=== PATIENT | female | born 1945 | race Caucasian/White ===

== ENCOUNTER → 2022-03-20 14:38 | Outpatient (CLI) | payer OTHER, SELFPAY | PROVIDERS: PCP Internal Medicine; Referring Provider Internal Medicine; Visit Provider Internal Medicine | DX: Z78.0 Asymptomatic menopausal state (principal); M85.89 Other specified disorders of bone density and structure, multiple sites | CPT/HCPCS: 77080 ==

== ENCOUNTER → 2022-04-07 09:39 | Outpatient (CLI) | payer OTHER, SELFPAY ==
--- NOTE | 2022-04-07 | DI.CT.S_ITS ---
PROCEDURE: CT ABDOMEN PELVIS W CON INDICATIONS: Unspecified abdominal pain TECHNIQUE: After the administration of oral and intravenous contrast, axial sections were acquired from the lung bases to the pubic symphysis. Coronal and sagittal reformats were performed. For radiation dose reduction, the following was used: automated exposure control, adjustment of mA and/or kV according to patient size. COMPARISON:None. FINDINGS: Image quality: Diagnostic. Lung bases: 3 mm anterior right lung base nodule seen on image 3/series 3. Lung bases are otherwise clear. Moderate hiatal hernia. Heart: No significant findings. ABDOMEN: Liver: Unremarkable. Gallbladder: Unremarkable. Biliary ducts: Unremarkable. Pancreas: Unremarkable. Spleen: Unremarkable. Adrenal Glands: Unremarkable. Kidneys and Ureters: Right kidney is normal in size. No hydronephrosis. No suspicious right renal mass. Right ureter is normal in course and caliber. There are a few punctate calcifications noted in close proximity to the course of the distal right ureter which are felt to be outside of the ureter. The left kidney demonstrates a few partially exophytic hypodensities measuring higher than fluid attenuation largest measures 1.5 cm in size. There are multiple left renal pelvic cystic densities which likely represent peripelvic cysts although mild hydronephrosis may have a similar appearance given multiple surgical clips along the left retroperitoneum. The course of the left ureter is difficult to follow given presence of mild motion artifact and streak artifact from numerous surgical clips. No perinephric stranding. Stomach and Bowel: Stomach and small bowel appear unremarkable. Numerous scattered colonic diverticula without acute diverticulitis. Appendix is normal. Peritoneum: No abnormal intraperitoneal fluid. No free air. Ventral Wall: No hernia. Abdominal Nodes: No retroperitoneal or mesenteric adenopathy by size criteria. Vessels: Aorta and inferior vena cava are normal in size. PELVIS: Pelvic Organs: Status post hysterectomy. Bladder: Unremarkable. Pelvic Nodes: No enlarged lymph nodes. Miscellaneous: No inguinal hernias are seen. Bones: No acute vertebral body compression fractures. Multilevel spondylitic changes throughout the imaged spine. No suspicious osseous lesions. IMPRESSION: 1. Multiple cystic lesions in the left renal pelvis likely representing peripelvic cysts. Mild hydronephrosis may have a similar appearance. There is no evidence for hydroureter or perinephric inflammation. There are also incompletely characterized left renal hypodensities likely representing hyperdense cysts. Consider further characterization with dedicated CT/MRI using renal mass protocol. 2. Multiple surgical clips along the left retroperitoneum which limits visualization of the course of the left ureter. 3. Colonic diverticulosis without acute diverticulitis. 4. Multilevel spondylosis. 5. Normal appearing appendix. Dictated by: Rudy Moya M.D. on 04/07/2022 at 14:31 Approved by: Rudy Moya M.D. on 04/07/2022 at 15:07
== END ==
PROVIDERS: PCP Internal Medicine; Referring Provider Internal Medicine; Visit Provider Internal Medicine
DX: N28.9 Disorder of kidney and ureter, unspecified (principal); K57.90 Diverticulosis of intestine, part unspecified, without perforation or abscess without bleeding; R10.9 Unspecified abdominal pain
CPT/HCPCS: 74177; Q9967

== ENCOUNTER → 2023-10-12 07:26 | Outpatient (CLI) | payer OTHER, SELFPAY ==
--- NOTE | 2023-10-12 07:30 | DI.MRI.S_ITS ---
PROCEDURE: MR CHEST WO/W CON INDICATIONS: Localized swelling, mass and lump, trunk TECHNIQUE: Axial 2-D FLASH in- and [id number], axial breath-hold T2 FSE, axial STIR FSE. Optional contrast may be given, followed by axial 2-D FLASH with fat saturation acquired over the lesion of concern. COMPARISON: None. FINDINGS: Image quality: Diagnostic Lungs and pleura: Lungs and pleura are not well evaluated on MRI. Possible basal atelectasis is seen. No discrete pleural effusions. Mediastinum, heart, and esophagus: Partially visualized, no gross abnormalities identified. Possible cardiomegaly. Chest wall and thyroid: At the area of interest in the left back no discrete lesion is identified. No fluid collection or suspicious enhancement. No suspicious soft tissue edema. Upper abdomen: Not well seen on this study Bones: There are degenerative changes and spinal curvature. IMPRESSION: Left back MRI marker placed. No discrete fluid collection or mass identified at the area of interest. Clinical follow-up is recommended. If there are new or enlarging symptoms, reimaging could be obtained. Ultrasound could also be helpful to identified fat containing masses such as lipoma. Dictated by: Nato Lala M.D. on 10/12/2023 at 9:09 Approved by: Nato Lala M.D. on 10/12/2023 at 9:13
== END ==
PROVIDERS: PCP Internal Medicine; Referring Provider Internal Medicine; Visit Provider Internal Medicine
DX: R22.2 Localized swelling, mass and lump, trunk (principal)
CPT/HCPCS: 71552; A9579

== ENCOUNTER → 2024-07-16 10:18 | Outpatient (CLI) | payer OTHER, SELFPAY ==
--- NOTE | 2024-07-16 10:20 | DI.RAD.S_ITS ---
PROCEDURE: XR SHOULDER LT MIN 2V INDICATIONS: SHOULDER PAIN TECHNIQUE: 3 views of the shoulder were acquired. COMPARISON: None. FINDINGS: Bones: No fractures or dislocations. No suspicious bony lesions. Moderate degenerative changes at the acromioclavicular joint. Visualized ribs appear intact. Soft tissues: No suspicious soft tissue calcifications. IMPRESSION: Moderate degenerative changes at the acromioclavicular joint. Dictated by: Andrea Steiner M.D. on 07/17/2024 at 0:48 Approved by: Andrea Steiner M.D. on 07/17/2024 at 0:49
== END ==
PROVIDERS: PCP Internal Medicine; Referring Provider Internal Medicine; Visit Provider Internal Medicine
DX: M25.512 Pain in left shoulder (principal)
CPT/HCPCS: 73030

== ENCOUNTER → 2024-10-14 13:31 | Outpatient (CLI) | payer OTHER, SELFPAY ==
--- NOTE | 2024-10-14 13:33 | DI.RAD.S_ITS ---
PROCEDURE: XR RIBS LT 2V INDICATIONS: CHEST PAIN TECHNIQUE: 2 views of the ribs were acquired. COMPARISON: None. FINDINGS: Left pleural space and lung: Normal-no effusions or pneumothorax. Left lung is clear. Bones and soft tissues: Mildly displaced fracture through the lateral left 6th rib appreciated. Age indeterminate IMPRESSION: Minimally displaced fracture lateral left 6th rib-age indeterminate Dictated by: Otoniel Sevilla M.D. on 10/15/2024 at 10:05 Approved by: Otoniel Sevilla M.D. on 10/15/2024 at 10:07
== END ==
PROVIDERS: PCP Internal Medicine; Referring Provider Internal Medicine; Visit Provider Internal Medicine
DX: R07.9 Chest pain, unspecified (principal)
CPT/HCPCS: 71100